=== PATIENT | female | born 1960 | race Caucasian/White ===

== ENCOUNTER → 2023-12-09 12:25 | Outpatient (REF) | payer OTHER, SELFPAY | LOC: HWRAD 12:25 | PROVIDERS: ATTENDING PHYSICIAN Family Medicine | DX: I65.23 Occlusion and stenosis of bilateral carotid arteries (principal) | CPT/HCPCS: 93880 ==

== ENCOUNTER → 2024-02-19 15:48 | Outpatient (REF) | payer OTHER, SELFPAY | LOC: HWRCS 15:48 | PROVIDERS: ATTENDING PHYSICIAN Internal Medicine Cardiovascular Disease; FAMILY PHYSICIAN Family Medicine | DX: I10 Essential (primary) hypertension (principal); R01.1 Cardiac murmur, unspecified | CPT/HCPCS: 93306 ==

== ENCOUNTER → 2024-03-17 12:39 | Outpatient (REF) | payer OTHER, SELFPAY | LOC: HWRAD 12:39 | PROVIDERS: ATTENDING PHYSICIAN Nurse Practitioner Adult Health; FAMILY PHYSICIAN Family Medicine | DX: Z78.0 Asymptomatic menopausal state (principal); Z12.31 Encounter for screening mammogram for malignant neoplasm of breast | CPT/HCPCS: 77063; 77067; 77080 ==

== ENCOUNTER → 2024-05-15 14:48 | Outpatient (REF) | payer OTHER, SELFPAY | LOC: HWRAD 14:48 | PROVIDERS: ATTENDING PHYSICIAN Podiatrist Foot & Ankle Surgery; FAMILY PHYSICIAN Family Medicine | DX: M20.22 Hallux rigidus, left foot (principal) | CPT/HCPCS: 73630 ==

== ENCOUNTER → 2025-01-26 12:49 | Outpatient (REF) | payer OTHER, SELFPAY | LOC: DHVS 12:49 | PROVIDERS: ATTENDING PHYSICIAN Surgery Vascular Surgery; FAMILY PHYSICIAN Family Medicine | DX: I65.22 Occlusion and stenosis of left carotid artery (principal) | CPT/HCPCS: 93880 ==

== ENCOUNTER → 2025-08-21 13:00 | Outpatient (REF) | payer OTHER, MEDICARE, SELFPAY | LOC: WDC 13:00 | PROVIDERS: ATTENDING PHYSICIAN Nurse Practitioner Adult Health; FAMILY PHYSICIAN Family Medicine | DX: Z12.31 Encounter for screening mammogram for malignant neoplasm of breast (principal) | CPT/HCPCS: 77063; 77067 ==